=== PATIENT | male | born 1955 | race Caucasian/White ===

== ENCOUNTER 2023-10-12 21:17 | Inpatient (IN) | payer OTHER ==
[~2023-10-12] VITALS: Ht 182.9 cm; Wt 113.5 kg
[2023-10-12 21:53] LABS: BASOPHILS % (AUTO) 0.8 % (0-1); EOSINOPHILS # (AUTO) 0.4 X10'3 (0-0.9); EOSINOPHILS % (AUTO) 6.8 % (0-6); HEMATOCRIT 40.2 % (42.0-52.0); HEMOGLOBIN 13.6 g/dl (14.0-17.9); LYMPHOCYTES # (AUTO) 2.5 X10'3 (1.1-4.8); LYMPHOCYTES % (AUTO) 41.2 % (21-51); MEAN CORPUSCULAR HEMOGLOBIN 29.6 PG (27.0-31.0); MEAN CORPUSCULAR HGB CONC 33.9 g/dL (33.0-36.5); MEAN CORPUSCULAR VOLUME 87.4 FL (78-98); MEAN PLATELET VOLUME 10.9 FL (7.4-10.4); MONOCYTES # (AUTO) 0.5 X10'3 (0-0.9); MONOCYTES % (AUTO) 9.1 % (2-12); NEUTROPHILS # (AUTO) 2.5 X10'3 (1.8-7.7); NEUTROPHILS % (AUTO) 42.1 % (42-75); PLATELET COUNT 161 X10'3 (140-440); RED BLOOD COUNT 4.59 X10'6 (4.70-6.10); RED CELL DISTRIBUTION WIDTH 14.1 % (11.5-14.5)
[2023-10-12 22:24] LABS: ALANINE AMINOTRANSFERASE 32 U/L (12-78); ALBUMIN 3.2 G/DL (3.4-5.0); ALBUMIN/GLOBULIN RATIO 0.8 (1.1-1.5); ALKALINE PHOSPHATASE 58 IU/L (46-116); ANION GAP 7 (8-16); ASPARTATE AMINO TRANSFERASE 18 U/L (10-37); BILIRUBIN,TOTAL 0.3 MG/DL (0.1-1.0); BLOOD UREA NITROGEN 16 MG/DL (7-18); BUN/CREATININE RATIO 16.5 (10.0-20.0); CALCIUM 9.1 MG/DL (8.5-10.1); CHLORIDE 106 MMOL/L (99-107); CREATININE 0.97 MG/DL (0.60-1.10); GLUCOSE 87 MG/DL (70-104); POTASSIUM 3.9 MMOL/L (3.5-5.1); SODIUM 141 MMOL/L (135-145); TOTAL CARBON DIOXIDE 27.6 MMOL/L (24-32); TOTAL PROTEIN 7.3 G/DL (6.4-8.2); eCRCL 80 ML/MIN; eGFR 77 ML/MIN
[2023-10-12 22:31] LABS: MAGNESIUM 2.1 MG/DL (1.5-2.4); PRO BRAIN NATRIURETIC PEPTIDE 210 PG/ML (0-125)
[2023-10-13] VITALS (7 sets, daily range): BP systolic 145–166; BP diastolic 52–79; PULSE 55–70; RESP 11–19; TEMP 96.7–98.6; O2SAT 94–98
[2023-10-13] MEDS ORDERED: potassium Cl 20 mEq SR tablet PO PRN ×2 (00:35)
[2023-10-13] MEDS ORDERED: mag hydrox/Alum hydrox/simeth 30ml oral suspension PO PRN (00:35)
[2023-10-13] MEDS ORDERED: ondansetron/PF 4mg/2ml inj IV PRN (00:35)
[2023-10-13] MEDS ORDERED: potassium Cl 40MEQ/1/2NS 520ml 520 ML IV PRN (00:35)
[2023-10-13] MEDS ORDERED: morphine 2 MG/ML inj. syringe IV PRN ×2 (00:35)
[2023-10-13] MEDS ORDERED: magnesium hydroxide 30ml (MOM) UD suspension PO PRN (00:35)
[2023-10-13] MEDS ORDERED: magnesium Cl slow-release 64mg tablet PO PRN (00:35)
[2023-10-13] MEDS ORDERED: magnesium sulf-water 4G/100mL 100 ML IV PRN (00:35)
[2023-10-13] MEDS ORDERED: magnesium sulf-water 2g/50mL 50 ML IV PRN (00:35)
[2023-10-13] MEDS ORDERED: acetaminophen 325mg tablet PO PRN (00:35)
[2023-10-13] MEDS: normal saline 1000ml 1,000 ML IV SCH (01:14)
[2023-10-13] MEDS ORDERED: nitroGLYCERIN 0.4mg SUBLingual tab SL PRN (02:05)
[2023-10-13] MEDS: aspirin 325mg tablet PO ONE (02:44)
[2023-10-13] MEDS ORDERED: TADA5TAB13 PO (04:09)
[2023-10-13] MEDS ORDERED: EZET10TA48 PO (04:09)
[2023-10-13] MEDS ORDERED: ATOR-2 PO (04:09)
[2023-10-13] MEDS ORDERED: ISOS60TA71 PO (04:09)
[2023-10-13] MEDS ORDERED: METO-395 PO (04:09)
[2023-10-13] MEDS ORDERED: MELO-100 PO (04:09)
[2023-10-13] MEDS ORDERED: FINA5TAB11 PO (04:09)
[2023-10-13] MEDS ORDERED: FLO0.4C (04:09)
[2023-10-13 06:43] LABS: MAGNESIUM 2.1 MG/DL (1.5-2.4); POTASSIUM 3.9 MMOL/L (3.5-5.1)
[2023-10-13 06:54] LABS: CHOL/HDL RATIO 3.8 (0.00-4.99); CHOLESTEROL 136 MG/DL (0-200); HDL CHOLESTEROL 36 MG/DL (35-60); LDL CHOLESTEROL 82 MG/DL (50-100); TRIGLYCERIDES 103 MG/DL (20-135)
[2023-10-13] MEDS: metoprolol succinate 25mg (24-HOUR) SR. Tablet PO SCH (08:00)
[2023-10-13] MEDS: K and/or MAG REPLACEMENT MC SCH (08:00)
[2023-10-13] MEDS: docusate sod 100mg capsule PO SCH (08:45)
[2023-10-13] MEDS: aspirin 81mg tab.chew PO SCH (08:45)
[2023-10-14] VITALS (17 sets, daily range): BP systolic 134–170; BP diastolic 64–88; PULSE 56–66; RESP 12–20; TEMP 97.3–98.9; O2SAT 92–97
[2023-10-14 06:40] LABS: ALBUMIN 3.3 G/DL (3.4-5.0); ANION GAP 10 (8-16); BLOOD UREA NITROGEN 16 MG/DL (7-18); BUN/CREATININE RATIO 17.6 (10.0-20.0); CHLORIDE 106 MMOL/L (99-107); CREATININE 0.91 MG/DL (0.60-1.10); GLUCOSE 91 MG/DL (70-104); MAGNESIUM 2.2 MG/DL (1.5-2.4); POTASSIUM 3.9 MMOL/L (3.5-5.1); SODIUM 141 MMOL/L (135-145); TOTAL CARBON DIOXIDE 25.3 MMOL/L (24-32); eCRCL 85 ML/MIN; eGFR 83 ML/MIN
[2023-10-14 06:45] LABS: BASOPHILS % (AUTO) 0.7 % (0-1); EOSINOPHILS # (AUTO) 0.3 X10'3 (0-0.9); EOSINOPHILS % (AUTO) 4.4 % (0-6); HEMOGLOBIN 14.1 g/dl (14.0-17.9); LYMPHOCYTES # (AUTO) 1.7 X10'3 (1.1-4.8); LYMPHOCYTES % (AUTO) 26.2 % (21-51); MEAN CORPUSCULAR HEMOGLOBIN 29.3 PG (27.0-31.0); MEAN CORPUSCULAR HGB CONC 33.4 g/dL (33.0-36.5); MEAN CORPUSCULAR VOLUME 87.7 FL (78-98); MEAN PLATELET VOLUME 10.6 FL (7.4-10.4); MONOCYTES # (AUTO) 0.6 X10'3 (0-0.9); MONOCYTES % (AUTO) 9.2 % (2-12); NEUTROPHILS # (AUTO) 3.8 X10'3 (1.8-7.7); NEUTROPHILS % (AUTO) 59.5 % (42-75); PLATELET COUNT 164 X10'3 (140-440); RED BLOOD COUNT 4.79 X10'6 (4.70-6.10); RED CELL DISTRIBUTION WIDTH 13.9 % (11.5-14.5); WHITE BLOOD COUNT 6.4 X10'3 (4.5-11.0)
[2023-10-14] MEDS ORDERED: verapamil 2.5 mg/ml inj IV ONE (09:38)
[2023-10-14] MEDS ORDERED: LIDOcaine 1% (10mg/ml) 2ml vial ONE ×2 (09:38→09:46)
[2023-10-14] MEDS ORDERED: fentaNYL/PF 50MCG/1 ML 2ML syringe ONE (09:39)
[2023-10-14] MEDS ORDERED: heparin 1,000unit/ml 10ml vial 10 ML ONE (09:39)
[2023-10-14] MEDS ORDERED: nitroGLYCERIN 500mcg/5mL D5W 5 ML IV ONE (09:39)
[2023-10-14] MEDS ORDERED: iohexol 350MG/ML 100ml bottle IV ONE (09:39)
[2023-10-14] MEDS ORDERED: midazolam 1 mg/ML 2ml injection ONE (09:39)
[2023-10-14] MEDS ORDERED: iohexol 350 MG/ML 50ML vial IV ONE (09:39)
[2023-10-14] MEDS ORDERED: LIDOcaine 1% 30ml preserv. free vial ONE (10:18)
[2023-10-14] MEDS ORDERED: nitroGLYCERIN 0.4mg SUBLingual tab SL PRN (11:55)
[2023-10-14] MEDS ORDERED: HYDROcodone/acetaminophen 10/325mg tab PO PRN (12:40)
[2023-10-14] MEDS: normal saline 1000ml 1,000 ML IV ONE (12:41)
[2023-10-14 12:48] LABS: ISTAT HGB ART 14.3 g/dl (14.0-17.9); ISTAT Hct ART 42 %PCV (42-52); ISTAT O2 SATURATION ARTERIAL 96 % (95-98); ISTAT SOURCE ART
[2023-10-14] MEDS: HYDROcodone/acetaminophen 5mg/325mg tablet PO PRN (15:12)
[2023-10-14] MEDS ORDERED: ASPI81TA53 PO (16:54)
[2023-10-14] MEDS ORDERED: PANT40TA54 PO (16:54)
[2023-10-14] MEDS: lisinopril 10 MG tablet PO ONE (19:27)
[2023-10-14] MEDS: hydrALAZINE 20mg/ml inj. IV PRN (19:29)
[2023-10-15 02:00] VITALS: BP 101/71; PULSE 62; RESP 15; TEMP 98.2; O2SAT 94
[2023-10-15 06:00] VITALS: BP 142/62; PULSE 62; RESP 13; TEMP 97.2; O2SAT 96
[2023-10-15 06:48] LABS: EOSINOPHILS # (AUTO) 0.2 X10'3 (0-0.9); EOSINOPHILS % (AUTO) 3.6 % (0-6); LYMPHOCYTES # (AUTO) 2.1 X10'3 (1.1-4.8); MONOCYTES # (AUTO) 0.5 X10'3 (0-0.9)
[2023-10-15 06:51] LABS: BASOPHILS % (AUTO) 0.6 % (0-1); HEMATOCRIT 42.7 % (42.0-52.0); HEMOGLOBIN 14.4 g/dl (14.0-17.9); LYMPHOCYTES % (AUTO) 33.5 % (21-51); MEAN CORPUSCULAR HEMOGLOBIN 29.6 PG (27.0-31.0); MEAN CORPUSCULAR HGB CONC 33.8 g/dL (33.0-36.5); MEAN CORPUSCULAR VOLUME 87.5 FL (78-98); MEAN PLATELET VOLUME 10.4 FL (7.4-10.4); MONOCYTES % (AUTO) 7.8 % (2-12); NEUTROPHILS # (AUTO) 3.4 X10'3 (1.8-7.7); NEUTROPHILS % (AUTO) 54.5 % (42-75); PLATELET COUNT 174 X10'3 (140-440); RED BLOOD COUNT 4.88 X10'6 (4.70-6.10); WHITE BLOOD COUNT 6.2 X10'3 (4.5-11.0)
[2023-10-15 07:12] LABS: ANION GAP 8 (8-16); BLOOD UREA NITROGEN 16 MG/DL (7-18); BUN/CREATININE RATIO 17.8 (10.0-20.0); CHLORIDE 110 MMOL/L (99-107); GLUCOSE 92 MG/DL (70-104); POTASSIUM 4.1 MMOL/L (3.5-5.1); SODIUM 141 MMOL/L (135-145); TOTAL CARBON DIOXIDE 23.4 MMOL/L (24-32)
[2023-10-15 07:13] LABS: ALBUMIN 3.2 G/DL (3.4-5.0); MAGNESIUM 2.1 MG/DL (1.5-2.4); eCRCL 86 ML/MIN; eGFR 84 ML/MIN
[2023-10-15 08:00] VITALS: RESP 13; O2SAT 96
[2023-10-15] MEDS ORDERED: lisinopril 20mg tablet PO SCH (08:00)
[2023-10-15] MEDS: metoprolol succinate 25mg (24-HOUR) SR. Tablet PO SCH (08:36)
[2023-10-15] MEDS: pantoprazole 40mg Tablet.DR PO SCH (09:06)
[2023-10-15] MEDS: isosorbide mononitrate 30mg tab.SR.24H PO SCH (09:32)
[2023-10-15 11:00] VITALS: BP 113/59; PULSE 69; RESP 15; TEMP 97.2; O2SAT 97
[2023-10-16] MEDS ORDERED: atorvastatin 20mg tablet PO SCH (08:00)
[2023-10-16] MEDS ORDERED: ezetimibe 10mg tablet PO SCH (08:00)
[2023-10-16] MEDS ORDERED: finasteride 5mg tablet PO SCH (08:00)
[2023-10-16 09:57] LABS: ISTAT HGB MIX 13.9 g/dl (14.0-17.9); ISTAT Hct MIX 41 %PCV (42-52); ISTAT O2 SATURATION MIX VENOUS 74 % (60-80); ISTAT SOURCE BLNK
== END 2023-10-15 14:01 | disposition home or self-care (01) | DRG 287 ==
LOC: ER 21:18 → ED HOLD 10-13 00:47 → PCU 3S 10-13 01:34
PROVIDERS: ADMIT Internal Medicine Pulmonary Disease; ATTEND Internal Medicine
PROC: 4A023N7 Measurement of Cardiac Sampling and Pressure, Left Heart, Percutaneous Approach (ICD-10-PCS; principal; 2023-10-14)
PROC: B2111ZZ Fluoroscopy of Multiple Coronary Arteries using Low Osmolar Contrast (ICD-10-PCS; 2023-10-14)
DX: I25.110 Atherosclerotic heart disease of native coronary artery with unstable angina pectoris (principal); E66.9 Obesity, unspecified; E78.5 Hyperlipidemia, unspecified; F41.9 Anxiety disorder, unspecified; I10 Essential (primary) hypertension; N40.0 Benign prostatic hyperplasia without lower urinary tract symptoms; R53.82 Chronic fatigue, unspecified; Z79.82 Long term (current) use of aspirin; Z95.0 Presence of cardiac pacemaker; Z79.899 Other long term (current) drug therapy; Z90.49 Acquired absence of other specified parts of digestive tract; Z68.33 Body mass index [BMI] 33.0-33.9, adult
CPT/HCPCS: 36415; 71045; 72050; 76937; 80048; 80053; 80061; 82803; 83735; 83880; 84132; 84484; 85014; 85025; 87081; 93005; 93306; 93460; 93880; 99152; 99153; 99285; A6258; A6590; C1725; C1751; C1769; C1894; G0378; J0360; J1644; J2250; J3010; J3490; J7030; Q9967